=== PATIENT | male | born 1960 ===

== ENCOUNTER 2024-07-22 12:42 | Outpatient (REF) | payer OTHER, SELFPAY ==
[2024-07-22 15:28] LABS: HCT 46.5 % (40.0-50.0); HGB 15.4 g/dL (13.5-17.5); MCH 31.8 pg (27.0-33.0); MCHC 33.1 % (32.0-36.0); MCV 96 fL (80-95); MPV 10.5 fL (8.0-11.0); Platelet Count 235 10^3/uL (130-400); RBC 4.85 10^6/uL (4.36-5.78); RDW 12.6 % (11.8-14.1); RDW-SD 44.4 fL; WBC 6.66 10^3/uL (4.4-10.8)
[2024-07-22 15:46] LABS: ALT 51 U/L (16-63); AST 29 U/L (15-37); Albumin 4.1 g/dL (3.4-5.0); Alkaline Phosphatase 104 U/L (46-116); Anion Gap 6.1 mmol/L (3-11); BUN 21 mg/dL (7-18); Bilirubin, Total 0.38 mg/dL (0.2-1.0); CO2 29.9 mmol/L (21.0-32.0); CREATININE 1.1 mg/dL (0.70-1.30); Calcium 9.6 mg/dL (8.5-10.1); Calculated LDL 121 mg/dL (<100); Chloride 106 mmol/L (98-107); Cholesterol 211 mg/dL (<200); Glucose 95 mg/dL (74-106); HDL Cholesterol 76 mg/dL (40-60); Potassium 5.6 mmol/L (3.5-5.1); Sodium 142 mmol/L (136-145); Total Protein 7.8 g/dL (6.4-8.2); Triglyceride 72 mg/dL (<150)
== END 2024-07-22 12:43 | disposition home or self-care (01) ==
LOC: NCHCN 12:42
PROVIDERS: Visit Provider Family Medicine
DX: R03.0 Elevated blood-pressure reading, without diagnosis of hypertension (principal); Z13.220 Encounter for screening for lipoid disorders
CPT/HCPCS: 80053; 80061; 85027

== ENCOUNTER 2024-09-21 12:34 | Outpatient (REF) | payer BC, SELFPAY ==
[2024-09-21 16:36] LABS: Anion Gap 7.9 mmol/L (3-11); BUN 21 mg/dL (7-18); CO2 27.1 mmol/L (21.0-32.0); CREATININE 1.2 mg/dL (0.70-1.30); Calcium 9.5 mg/dL (8.5-10.1); Chloride 104 mmol/L (98-107); Estimated GFR 67.11 (mL/min/1.73m2); Glucose 137 mg/dL (74-106); Potassium 5.4 mmol/L (3.5-5.1); Sodium 139 mmol/L (136-145)
== END 2024-09-21 12:35 | disposition home or self-care (01) ==
LOC: NCHCN 12:34
PROVIDERS: Visit Provider Family Medicine
DX: I10 Essential (primary) hypertension (principal)
CPT/HCPCS: 80048

== ENCOUNTER 2025-03-22 08:51 | Outpatient (REF) | payer BC, SELFPAY ==
[2025-03-22 15:31] LABS: Anion Gap 9.7 mmol/L (3-11); BUN 30 mg/dL (7-18); CO2 28.3 mmol/L (21.0-32.0); Calcium 9.9 mg/dL (8.5-10.1); Calculated LDL 135 mg/dL (<100); Chloride 100 mmol/L (98-107); Cholesterol 223 mg/dL (<200); Estimated GFR 74.50 (mL/min/1.73m2); Glucose 136 mg/dL (74-106); HDL Cholesterol 64 mg/dL (>or=40); Potassium 5.3 mmol/L (3.5-5.1); Sodium 138 mmol/L (136-145); Triglyceride 120 mg/dL (<150)
[2025-03-23 09:18] LABS: PSA, Screening 0.5 ng/mL (<=4.5)
== END 2025-03-22 08:52 | disposition home or self-care (01) ==
LOC: NCHCN 08:51
PROVIDERS: Visit Provider Family Medicine
DX: Z12.5 Encounter for screening for malignant neoplasm of prostate (principal); I10 Essential (primary) hypertension; E78.5 Hyperlipidemia, unspecified
CPT/HCPCS: 80048; 80061; 84153

== ENCOUNTER 2025-07-06 06:52 | Day surgery (SDC) | payer BC, SELFPAY ==
[2025-07-06 07:21] VITALS: BP 132/78; PULSE 89; RESP 16; TEMP 36.3; O2SAT 98
[2025-07-06] MEDS: Lactated Ringers 1,000 ML 80 ML IV (07:25)
--- NOTE | 2025-07-06 07:34 | ANES.PREOP_ITS ---
General Info Date of Service Date Performed: 07/06/25 Height: 5 ft 6 in Weight: 65.7 kg Body Mass Index (BMI): 23.3 Surgical Procedure: Operation Date: 07/06/25 08:20 Proposed Procedure Side Surgeon p Colonoscopy Sharona Hodges MD Meds Allergies and Home Medications Allergies Allergy/AdvReac Type Severity Reaction Status Date / Time No Known Allergies Allergy Verified 07/06/25 07:08 Home Medication ?Medication ?Instructions ?Recorded lisinopril 10 mg tablet 10 mg PO DAILY 06/15/25 bisacodyl 5 mg tablet,delayed 5 mg PO ONCE Colonoscopy Bowel 06/23/25 release Prep #4 tabs hydrocortisone 2.5 % topical cream 1 applic [place] Q8H PRN hemorrhoids 1 06/23/25 with perineal applicator week #30 grams (Anusol-HC) polyethylene glycol 3350 17 238 g PO ONCE #238 grams 1 08/23/24 gram/dose oral powder Current Visit Medications: Current Medications Generic Name Dose Route Start Last Admin Trade Name Freq PRN Reason Stop Dose Admin Ringer's Solution 1,000 mls @ 80 mls/hr 07/06/25 06:00 07/06/25 07:25 IV 07/06/25 23:59 80 mls/hr INFUSION TENISHA Administration Sodium Biphosphate/Sodium Phosphate 133 ml 07/06/25 06:00 Na Phosphate Enema-Adult 133 Ml Btl W[place] 07/06/25 23:59 DIRECTED PRN Sodium Chloride 0 ml 07/06/25 06:00 Normal Saline Flush 10 Ml Syr IV 07/06/25 23:59 PRN PRN Sodium Chloride 0 ml 07/06/25 06:00 Normal Saline 10 Ml Vial IJ 07/06/25 23:59 DIRECTED PRN Sterile Water 0 ml 07/06/25 06:00 Water,Injection,Sterile 10 Ml Vial IJ 07/06/25 23:59 DIRECTED PRN PFSH Active Problems Active Problems: Problem Status Onset Code Essential hypertension Acute I10 Medical History Medical History Dislocated shoulder (~1979) Venancio Vasovagal syncope Per referral episodes follow consistent pattern, stomach cramps, profuse sweating then loses consciousness. Typically occur while using the bathroom. Sinusitis Lesion of skin of right ear Hyperlipidemia Surgical History Surgical History History of colonoscopy History of hernia repair groin and belly- Venancio Tobacco Smoking/Tobacco Use Status: Never Passive smoking exposure: Yes Alcohol Alcohol Intake: current Alcohol intake frequency: holidays/special occasions only Substance Use Substance use: Never Substance use type: does not use Vital Signs and Lab Results Vital Signs Most Recent Vital Signs in EMR: Most Recent Vital Signs Temp Pulse Resp BP Pulse Ox 36.3 C L 89 16 132/78 98 07/06/25 07:21 07/06/25 07:21 07/06/25 07:21 07/06/25 07:21 07/06/25 07:21 Anesthesia Assessment and Plan Anesthesia History Personal History: No History of Anesthesia Complications Family History: No Family History of Anesthesia Complications Exercise Tolerance Exercise Tolerance: Metabolic Equivalents>4 Pertinent Negatives Pertinent Negatives: No Symptoms of GERD, No Major Cardiovascular Symptoms or Complaints and No Major Pulmonary Symptoms or Complaints Cardiac & Pulmonary Exam Cardiac Exam: Normal S1/S2 Heart Sounds Pulmonary Exam: Clear Bilateral Breath Sounds Implantable Cardiac Device Does patient have a Pacemaker or an ICD?: No Airway Exam Known Difficult Airway: No Mallampati Class: 3 Mouth Opening: Normal (> 3cm) Thyromental Distance: Greater than 3 cm Neck Range of Motion: Full ROM Neck Circumference: Normal Teeth Condition: Normal Dentition (removable right upper front tooth) ASA Classification ASA Score: ASA 2 Emergency Case?: No NPO Status NPO Status: NPO Clears >2 hours, Solids >8 hours Anesthesia Plan Resuscitation Status: Full Code Anesthesia Technique: General Anesthesia Airway Planned: Natural Airway Monitors Used: Standard Monitors Preoperative Comments:: Hx of HTN, first colonoscopy.
[2025-07-06 07:38] VITALS: BMI 23.3
--- NOTE | 2025-07-06 08:38 | W.PM.DSUDISC ---
Date of service: 07/06/25 Discharge Plan Disposition Patient Disposition: Home Condition: Stable Discharge Details Attending Provider: Sharona Hodges Primary Care Provider: Ann-Marie Garza Home Meds and New Rx's Prescriptions: Continued hydrocortisone [Anusol-HC] 2.5 % cream with perineal applicator 1 applic AL Q8H PRN (Reason: hemorrhoids) 7 Days Qty: 30 3RF lisinopril 10 mg tablet 10 mg PO DAILY Discontinued bisacodyl 5 mg tablet,delayed release (DR/EC) 5 mg PO ONCE Qty: 4 0RF Rx Instructions: Per Colonoscopy bowel prep instructions polyethylene glycol 3350 17 gram/dose powder 238 g PO ONCE Qty: 238 0RF Rx Instructions: For Colonoscopy bowel prep, as directed by office Discharge Instructions Additional Instructions: Your colonoscopy shows zero polyps, so you dont need another one for ten years. Congratulations! Diverticulosis of the sigmoid colon noted, no diverticulitis (infection) present. Take a daily fiber supplement and eat a high fiber diet to prevent problems and progression of diverticulosis. Hemorrhoids look very mild today. There is one hemorrhoid with a tag on it inside the anus. That is the one that probably flairs up at times. Staying regular with fiber supplement will help keep hemorrhoids from flairing up. Use the cream I gave you directly on the flaired hemorrhoids for a few days when they occur. Stand Alone Forms: Anesthesia Discharge Inst., Colonoscopy Post Instructions, Berhane Mcdonald ([facility]), Portal Information Activity:: Activity as Tolerated Diet:: As Tolerated Discharge Orders Discharge Orders: Discharge Order (Routine); Ordered 07/06/25 Ordered By: Sharona Hodges DS: Diagnosis Discharge Diagnosis (1) Encounter for screening colonoscopy for [id number] patient: Status: Acute (2) Diverticulosis of colon: Status: Acute
--- NOTE | 2025-07-06 08:42 | W.COLOREPORT ---
Date of service: 07/06/25 Time of Service: 08:42 Colonoscopy Report Date of procedure: 07/06/25 Pre-op diagnosis general: Screening for colorectal cancer Post-op diagnosis procedure note: same (1. normal colonoscopy. 2. sigmoid diverticulosis) Procedure: Colonoscopy Surgeon: Sharona Hodges Anesthesia Type: General:No Airway Estimated blood loss (mL): 0 Pathology: none sent Complications: None Indications: screening for colorectal cancer Prep: Miralax/Dulcolax (excellent) Procedure Description: Informed consent was obtained and the patient was taken to the procedure area. The patient was placed in left lateral decubitus position on the procedure table. Timeout was performed. Anesthesia was induced. A lubricated colonoscope was inserted through the anus and passed to the cecum. The cecum was identified by the ileocecal valve and the appendiceal orifice. The scope was then slowly withdrawn and the colonic and rectal mucosa examined. There are no colon or rectal mass lesions, polyps, AVMs. There is no inflammatory change. Moderate sigmoid diverticulosis was seen. The scope was retroflexed in the anorectal junction examined. Uncomplicated internal hemorrhoids with one tag present. no acute inflammation or prolapse on exam today. Assessment and plan: Screening colonoscopy Sigmoid diverticulosis Normal colonoscopy. Next screening colonoscopy will be due in 10 years. High fiber diet or fiber supplement for diverticulosis. Anusol cream prescribed at office visit for hemorrhoids. Mild on exam today.
[2025-07-06 08:43] VITALS: BP 99/68; PULSE 85; RESP 14; TEMP 36.2; O2SAT 98
[2025-07-06 09:12] VITALS: BP 126/76; PULSE 81; RESP 16; TEMP 36.4; O2SAT 99
--- NOTE | 2025-07-06 10:16 | W.ANESPOSTOP ---
Postoperative Evaluation Date, Time and Location Date Performed: 07/06/25 Time Performed: 09:12 Patient Location: Day Surgery Unit Vital Signs Most Recent Imported Vital Signs: Most Recent Vital Signs Temp Pulse Resp BP Pulse Ox 36.4 C L 81 16 126/76 99 07/06/25 09:12 07/06/25 09:12 07/06/25 09:12 07/06/25 09:12 07/06/25 09:12 Pain Score Most Recent Pain Score: Most Recent Pain Score Pain Level 0 07/06/25 09:12 Assessment Mental Status: Awake (Alert & Oriented to Patient Baseline) Airway and Respiratory Function: Patent airway with normal (patient baseline) respiratory exam Cardiovascular Function: Hemodynamically Stable Hydration Status: Adequately Hydrated Nausea & Vomiting: No Nausea or Vomiting Pain: Pt. Denies Any Pain Peripheral Nerve Block: Patient did not receive a nerve block
== END 2025-07-06 09:22 | disposition home or self-care (01) ==
LOC: SUR 06:52
PROVIDERS: PCP Family Medicine; Visit Provider Surgery
PROC: 0DJD8ZZ Inspection of Lower Intestinal Tract, Via Natural or Artificial Opening Endoscopic (ICD-10-PCS; CPT 45378; principal; 2025-07-06 08:15)
DX: Z12.11 Encounter for screening for malignant neoplasm of colon (principal); K57.30 Diverticulosis of large intestine without perforation or abscess without bleeding
CPT/HCPCS: 45378; J2003; J2704